=== PATIENT | female | born 1955 | race Caucasian/White ===

== ENCOUNTER 2016-09-29 23:45 | Emergency (ER) | payer OTHER ==
[~2016-09-29] VITALS: Ht 167.6 cm; Wt 74.0 kg
[~2016-09-29 23:45] MED LIST: EXCEDRIN EXTRA1 EACH PO; ZYRTEC10 M3 PO
[2016-09-30] MEDS ORDERED: KEFLEX250 MG PO (00:14)
[2016-09-30 00:52] VITALS: BP 109/81
== END 2016-09-30 00:54 | disposition home or self-care (01) ==
LOC: EME 23:45
PROC: 2Y41X5Z Packing of Nasal Region using Packing Material (ICD-10-PCS; principal; 2016-09-29)
DX: R04.0 Epistaxis (principal)
CPT/HCPCS: 99281; 99284

== ENCOUNTER 2016-11-02 17:25 | Emergency (ER) | payer OTHER ==
[~2016-11-02] VITALS: Ht 167.6 cm; Wt 74.1 kg
[~2016-11-02 17:25] MED LIST changes: +KEFLEX250 MG PO
[2016-11-02 19:33] VITALS: BP 120/74
== END 2016-11-02 19:34 | disposition home or self-care (01) ==
LOC: EME 17:25
PROC: 2Y41X5Z Packing of Nasal Region using Packing Material (ICD-10-PCS; principal; 2016-11-02)
DX: R04.0 Epistaxis (principal)
CPT/HCPCS: 99281; 99284